=== PATIENT | female | born 1985 | race Caucasian/White ===

== ENCOUNTER 2024-07-16 01:58 | Emergency (ER) | payer OTHER ==
[~2024-07-16] VITALS: Ht 167.6 cm; Wt 59.1 kg
[~2024-07-16 01:58] MED LIST: motrin; tylenol
[2024-07-16 03:56] VITALS: BP 121/69; PULSE 73; RESP 20; TEMP 97.4; O2SAT 95
[2024-07-16] MEDS ORDERED: CEPH-558 PO (06:20)
== END 2024-07-16 07:57 | disposition home or self-care (01) ==
LOC: EMS 01:58
DX: H60.11 Cellulitis of right external ear (principal); Z98.890 Other specified postprocedural states
CPT/HCPCS: 99283; Z7502